=== PATIENT | female | born 1980 ===

== ENCOUNTER 2021-10-15 06:09 | Day surgery (SDC) | payer OTHER | END 2021-10-15 12:30 | disposition home or self-care (01) | LOC: CIR.AMB 06:09 | PROVIDERS: ATTEND Orthopaedic Surgery Hand Surgery | DX: M65.331 Trigger finger, right middle finger (principal); D21.11 Benign neoplasm of connective and other soft tissue of right upper limb, including shoulder; Z20.822 Contact with and (suspected) exposure to COVID-19 ==